=== PATIENT | female | born 1960 | race Caucasian/White ===

== ENCOUNTER 2021-01-06 09:45 | Inpatient (IN) | payer MEDICAID ==
[~2021-01-06] VITALS: Ht 172.7 cm; Wt 96.9 kg
[~2021-01-06 09:45] MED LIST: MAGN400T40 PO; PROG1POW XX
[2021-01-06] MEDS ORDERED: ceFAZolin 1GM/50ML 100 ML IV ONE (10:41)
[2021-01-06] MEDS ORDERED: LIDOCAINE W/ EPINEPHRINE 1% 20ML VIAL ONE (12:29)
[2021-01-06] MEDS ORDERED: BUPIVACAINE 0.25% INJ 50ML VIAL ONE (12:29)
[2021-01-06] MEDS ORDERED: SUCCINYLCHOLINE CHLORIDE 20 MG/ML 10ML VIAL IV ONE (15:13)
[2021-01-06] MEDS ORDERED: FAMOTIDINE (10MG/ML) 2ML VL IV ONE (15:13)
[2021-01-06] MEDS ORDERED: ROCURONIUM 10MG/ML 10ML VIAL IV ONE (15:13)
[2021-01-06] MEDS ORDERED: KETOROLAC TROMETH 30 MG/ML 1ML VIAL ONE (15:15)
[2021-01-06] MEDS ORDERED: DexAMETHasone SOD PHOS 10MG/1ML VIAL INJ ONE (15:15)
[2021-01-06] MEDS ORDERED: PROPOFOL 10 MG/ML 20 ML IV ONE (15:15)
[2021-01-06] MEDS ORDERED: HYDROmorphone HCL 2 MG/ML VL ONE (15:15)
[2021-01-06] MEDS ORDERED: GLYCOPYRROLATE 0.2 MG/ML 1ML VIAL ONE ×2 (15:15→17:42)
[2021-01-06] MEDS ORDERED: fentaNYL CITRATE 5 ML ONE (15:15)
[2021-01-06] MEDS ORDERED: ePHEDrine SULFATE 50 MG/ML AMP ONE (15:15)
[2021-01-06] MEDS ORDERED: PHENYLEPHRINE HCL 10 MG/ML VL ONE (15:15)
[2021-01-06] MEDS ORDERED: ONDANSETRON HCL 4 MG/2 ML VIAL ONE (15:15)
[2021-01-06] MEDS ORDERED: MIDAZOLAM HCL 2MG/2ML 2ml VIAL (1mg/ml) ONE (15:16)
[2021-01-06] MEDS ORDERED: ceFAZolin 1GM/50ML 50 ML IV ONE (15:30)
[2021-01-06] MEDS ORDERED: ACETAMINOPHEN 500 MG TAB PO PRN (15:30)
[2021-01-06] MEDS ORDERED: NITROGLYCERIN 0.4 MG SL TAB SL PRN (15:30)
[2021-01-06] MEDS ORDERED: MORPHINE SULFATE INJECTION 2 MG/ML SYRG IV PRN (15:30)
[2021-01-06] MEDS ORDERED: HYDROcodone-ACET 5/325MG TAB PO PRN (15:30)
[2021-01-06] MEDS ORDERED: NEOSTIGMINE 1 MG/ML INJ (10mg/10ML VIAL) ONE (17:42)
[2021-01-06] MEDS ORDERED: NALOXONE HCL 0.4 MG/ML VIAL ONE (17:53)
[2021-01-06] MEDS: SODIUM CHLORIDE 0.9% 1,000 ML IV SCH (18:05)
[2021-01-06] MEDS ORDERED: ONDANSETRON HCL 4 MG/2 ML VIAL IV PRN (18:15)
[2021-01-06] MEDS ORDERED: HYDROmorphone HCL 2 MG/ML VL IV PRN (18:15)
[2021-01-06] MEDS: ONDANSETRON HCL 4 MG/2 ML VIAL IV PRN (20:30)
[2021-01-06 21:52] VITALS: BP 130/76
[2021-01-07] MEDS: SODIUM CHLORIDE 0.9% 1,000 ML IV SCH ×3 (00:27→15:31)
[2021-01-07] MEDS: ONDANSETRON HCL 4 MG/2 ML VIAL IV PRN (00:30)
[2021-01-07 05:00] VITALS: BP 127/71
[2021-01-07 05:35] LABS: Basophils # (auto) 0 10 ^3/uL (0-0.2); Basophils % (auto) 0.4 % (0.0-2.0); Eosinophils # (auto) 0 10 ^3/uL (0-0.8); Hematocrit 37.8 % (36.0-46.0); Hemoglobin 12.7 g/dL (12.2-16.2); Lymphocytes # (auto) 0.4 10 ^3/uL (0.4-5.4); Mean Corpuscular Hgb Conc. 33.6 g/dL (32.0-36.0); Mean Corpuscular Volume 86.2 fL (80.0-100.0); Monocytes # (auto) 0.2 10 ^3/uL (0-1.3); Monocytes % (auto) 2.7 % (0.0-12.0); Neutrophils # (auto) 6.9 10 ^3/uL (1.6-8.6); Neutrophils % (auto) 91.9 % (37.0-80.0); Red Blood Cells 4.38 10^6/uL (4.0-5.20); Red Cell Distribution Width 13.7 % (11.8-14.3); White Blood Cell 7.5 10^3/uL (4.4-10.8)
[2021-01-07] MEDS: MORPHINE SULFATE 4 MG/ML SYR/VIAL IV PRN ×2 (06:13→10:29)
[2021-01-07 08:40] VITALS: BP 109/66
[2021-01-07] MEDS ORDERED: SODIUM CHLORIDE 0.9% 1,000 ML IV ONE (09:45)
[2021-01-07 13:00] VITALS: BP 110/64
[2021-01-07 16:55] VITALS: BP 106/55
[2021-01-07 22:00] VITALS: BP 102/65
[2021-01-08] MEDS: SODIUM CHLORIDE 0.9% 1,000 ML IV SCH ×3 (04:40→15:30)
[2021-01-08 05:00] VITALS: BP 119/62
[2021-01-08 09:00] VITALS: BP 127/74
[2021-01-08] MEDS: ONDANSETRON HCL 4 MG/2 ML VIAL IV PRN (10:01)
[2021-01-08 13:00] VITALS: BP 137/78
[2021-01-08] MEDS ORDERED: MECLIZINE HCL 25 MG TAB PO PRN (13:15)
== END 2021-01-08 16:03 | disposition home or self-care (01) | DRG 513 ==
LOC: SUR 09:45 → OVERFLOW 15:22 → CENTRAL 21:03
PROVIDERS: ADMIT Obstetrics & Gynecology; ATTEND Obstetrics & Gynecology
PROC: 0UT74ZZ Resection of Bilateral Fallopian Tubes, Percutaneous Endoscopic Approach (ICD-10-PCS; 2021-01-06)
PROC: 0UT24ZZ Resection of Bilateral Ovaries, Percutaneous Endoscopic Approach (ICD-10-PCS; 2021-01-06)
PROC: 0USG4ZZ Reposition Vagina, Percutaneous Endoscopic Approach (ICD-10-PCS; 2021-01-06)
PROC: 8E0W4CZ Robotic Assisted Procedure of Trunk Region, Percutaneous Endoscopic Approach (ICD-10-PCS; 2021-01-06)
PROC: 0DNN4ZZ Release Sigmoid Colon, Percutaneous Endoscopic Approach (ICD-10-PCS; 2021-01-06)
PROC: 0UT94ZL Resection of Uterus, Supracervical, Percutaneous Endoscopic Approach (ICD-10-PCS; principal; 2021-01-06 15:31)
DX: N81.4 Uterovaginal prolapse, unspecified (principal); N73.6 Female pelvic peritoneal adhesions (postinfective); Z20.822 Contact with and (suspected) exposure to COVID-19
CPT/HCPCS: 36415; 71045; 85025; 86850; 86900; 86901; G0378; J0330; J0690; J1100; J1885; J2250; J2405; J2704; J3490